=== PATIENT | male | born 2000 | race Caucasian/White ===

== ENCOUNTER 2022-02-09 23:10 | Emergency (ER) | payer BC ==
[2022-02-09] MEDS ORDERED: hydrOXYzine HCl 50 MG/ML SDV IM ONE (23:20)
== END 2022-02-09 23:35 | disposition home or self-care (01) ==
LOC: VM.ED 23:10
DX: F41.0 Panic disorder [episodic paroxysmal anxiety] (principal)
CPT/HCPCS: 99283; 99284

== ENCOUNTER 2022-10-14 12:16 | Emergency (ER) | payer BC ==
[2022-10-14] MEDS ORDERED: Sodium Chloride 0.9% 10 ML Syringe FLUSH PRN (12:28)
[2022-10-14] MEDS: Sodium Chloride 0.9% 500 ML IV ONE (12:45)
[2022-10-14 12:54] LABS: BASOPHILS PERCENT AUTO 0.3 % (0.2-1.2); EOSINOPHILS ABSOLUTE AUTO 0.1 x10^3/uL (0.0-0.5); EOSINOPHILS PERCENT AUTO 0.9 % (0.0-4.0); HEMATOCRIT 43.5 % (40.0-52.0); HEMOGLOBIN 15.7 g/dL (14.0-18.0); IMMATURE GRAN ABSOLUTE AUTO 0.02 x10^3/uL (0.00-0.07); LYMPHOCYTES ABSOLUTE AUTO 2.1 x10^3/uL (1.0-4.8); LYMPHOCYTES PERCENT AUTO 24.5 % (25.0-50.0); MEAN CORPUSCULAR HEMOGLOBIN 30.2 pg (26.0-32.0); MEAN CORPUSCULAR HGB CONC 36.1 g/dL (32.0-36.0); MEAN CORPUSCULAR VOLUME 83.7 fL (78.0-93.0); MONOCYTES ABSOLUTE AUTO 0.6 x10^3/uL (0.0-0.8); MONOCYTES PERCENT AUTO 7.3 % (2.0-11.0); NEUTROPHILS ABSOLUTE AUTO 5.8 x10^3/uL (1.8-7.7); NEUTROPHILS PERCENT AUTO 66.8 % (50.0-80.0); PLATELET COUNT,PLT 164 x10^3/uL (130-400); WHITE BLOOD CELL COUNT,WBC 8.7 x10^3/uL (4.0-10.0)
[2022-10-14 13:23] LABS: A/G RATIO 1.08; ALANINE AMINOTRANSFERASE,ALT 24 U/L (16-63); ALBUMIN 4.1 g/dL (3.4-5.0); ALKALINE PHOSPHATASE 75 U/L (46-116); ASPARTATE AMNIOTRANSFERASE,AST 17 U/L (15-37); BILIRUBIN TOTAL 0.6 mg/dL (0.2-1.0); BLOOD UREA NITROGEN,BUN 6 mg/dL (7-18); CALCIUM 9.1 mg/dL (8.5-10.1); CARBON DIOXIDE,CO2 23 mmol/L (21-32); CHLORIDE,CL 103 mmol/L (98-107); GLUCOSE RANDOM 114 mg/dL (70-99); MAGNESIUM 1.5 mg/dL (1.8-2.4); PROTEIN TOTAL,TP 7.9 g/dL (6.4-8.2); SODIUM,NA 142 mmol/L (136-145); TSH ULTRASENSITIVE 4.585 uIU/mL (0.358-3.74)
[2022-10-14 13:28] LABS: ANION GAP 18.9 mmol/L (5-15); ESTIMATED GFR 108 mL/min (>=60)
[2022-10-14 13:29] LABS: POTASSIUM,K 2.9 mmol/L (3.5-5.1)
[2022-10-14] MEDS: Ketorolac 15 MG/ML SDV IVPUSH ONE (13:29)
[2022-10-14] MEDS: Potassium Chloride 10 MEQ Tab.ER PO ONE (13:40)
== END 2022-10-14 13:59 | disposition home or self-care (01) ==
LOC: VM.ED 12:16
DX: E86.0 Dehydration (principal); E87.6 Hypokalemia
CPT/HCPCS: 36415; 70450; 80053; 83735; 84443; 84484; 85025; 96374; 99283; 99285-25; A9270-GY; J1885; J7030

== ENCOUNTER 2023-09-12 21:59 | Emergency (ER) | payer BC ==
[2023-09-12] MEDS: Lidocaine 1% 10 ML MDV INJECT ONE (22:33)
[2023-09-12] MEDS: Diphtheria,Pertussis(Acell),Tetanus Vaccine 0.5 ML Syringe IM ONE (22:40)
== END 2023-09-12 22:55 | disposition home or self-care (01) ==
LOC: VM.ED 21:59
DX: S61.211A Laceration without foreign body of left index finger without damage to nail, initial encounter (principal); Z23 Encounter for immunization; W26.8XXA Contact with other sharp object(s), not elsewhere classified, initial encounter
CPT/HCPCS: 12001; 90471; 90715; 99282-25; 99283; J3490